=== PATIENT | male | born 1930 | race Caucasian/White ===

== ENCOUNTER 2017-01-15 22:08 | Emergency (ER) | payer OTHER ==
[2017-01-15 22:17] VITALS: RESP 16
--- NOTE | 2017-01-15 22:28 | CPEKG ---
Heart Rate: 104 RR Interval: 577 P-R Interval: 180 QRSD Interval: 110 QT Interval: 388 QTC Interval: 511 P [place]: 76 QRS [place]: -60 T Wave [place]: 75 EKG Severity - ABNORMAL ECG - EKG Impression: SINUS TACHYCARDIA EKG Impression: PAIRED VENTRICULAR PREMATURE COMPLEXES EKG Impression: LEFT ANTERIOR FASCICULAR BLOCK Electronically Signed By: Makeda Lucas 16-Jan-2017 06:50:23
[2017-01-15 22:55] LABS: % IMMATURE GRANULYOCYTES 0.3 % (0.0-1.1); ABSOLUTE IMMATURE GRANULOCYTES 0.02 10^3/uL (0.00-0.10); ADD DIFF? NO; ADD MORPH? NO; ADD SCAN? NO; ATYPICAL LYMPHOCYTE FLAG 10 (0-99); FRAGMENT RBC FLAG 0 (0-99); HEMATOCRIT 43.7 % (40.0-51.0); HEMOGLOBIN 15.4 g/dL (13.7-17.5); LEFT SHIFT FLG 0 (0-99); LIPEMIA HEMOLYSIS FLAG 90 (0-99); MEAN CELL HEMOGLOBIN CONCENTR. 35.2 g/dL (32.4-36.7); MEAN CELL VOLUME 90.9 fL (81.5-99.8); MEAN PLATELET VOLUME 9.3 fL (8.7-11.7); PLATELET CLUMPS FLAG 0 (0-99); PLATELET COUNT 253 10^3/uL (150-400); RED BLOOD CELL COUNT 4.81 10^6/uL (4.40-6.38); RED CELL DISTRIBUTION WIDTH 12.7 % (11.5-15.2)
[2017-01-15 23:08] LABS: ALANINE AMINOTRANSFERASE 36 IU/L (21-72); ALBUMIN 3.7 g/dL (3.5-5.0); ALKALINE PHOSPHATASE 80 IU/L (38-126); ANION GAP 8 mEq/L (8-16); ASPARTATE AMINOTRANSFERASE 34 IU/L (17-59); BILIRUBIN,TOTAL 0.6 mg/dL (0.1-1.4); CALCIUM 9.1 mg/dL (8.5-10.4); CARBON DIOXIDE 25 mEq/l (22-31); CHLORIDE 101 mEq/L (97-110); CREATININE 0.8 mg/dL (0.7-1.3); GLOMERULAR FILTRATION RATE > 60; GLUCOSE 110 mg/dL (70-100); POTASSIUM 3.9 mEq/L (3.5-5.2); SODIUM 134 mEq/L (134-144); TOTAL PROTEIN 6.3 g/dL (6.3-8.2)
--- NOTE | 2017-01-15 23:24 | EDPHY ---
H & P Stated Complaint: pt concerned for hypertension at home, no s/s-wearing holter monitor Time Seen by Provider: 01/15/17 22:43 HPI/ROS: HPI The patient presents with an episode which he describes as a panic attack which occurred several hours ago while he was in the car driving his grandsons home. As he felt generally unwell and began to hyperventilate. He said he had to get out of the car to see if he could make himself feel better. He describes his symptoms as being in a "punk". He has had episodes like this before. He denies any chest pain or shortness of breath. He went home after this episode and checked his blood pressure and it was 184/124, with his normal blood pressure being 135/80. He was concerned about this. He is currently wearing an event monitor for the last 5 days for frequent PVCs that he is been having. He is active, able to ride his recumbent bicycle 2-4 miles a day. He does not have any chest pain with exertion. REVIEW OF SYSTEMS Constitutional: No fever, no chills. Eyes: No discharge. ENT: No sore throat. Cardiovascular: No chest pain, no palpitations. Respiratory: No cough, no shortness of breath. Gastrointestinal: No abdominal pain, no vomiting. Genitourinary: No hematuria. Musculoskeletal: No back pain. Skin: No rashes. Neurological: No headache. PMHx: Hypertension, PVCs, hyperlipidemia Soc Hx: Lives at home with his PHYSICAL General Appearance: Alert, no distress Eyes: Pupils equal and round no pallor or injection ENT, Mouth: Mucous membranes moist Respiratory: There are no retractions, lungs are clear to auscultation Cardiovascular: Regular rate and rhythm Gastrointestinal: Abdomen is soft and non-tender, no masses, bowel sounds normal Neurological: A&O, moves all extremities Skin: Warm and dry, no rashes Musculoskeletal: Neck is supple non tender Extremities: symmetrical, full range of motion Psychiatric: Patient is oriented X 3, there is no agitation Source: Patient Exam Limitations: No limitations - Personal History Current Tetanus/Diphtheria Vaccine: Unsure Current Tetanus Diphtheria and Acellular Pertussis (TDAP): Unsure - Medical/Surgical History Hx Asthma: No Hx Chronic Respiratory Disease: No Hx Diabetes: No Hx Cardiac Disease: Yes Hx Renal Disease: No Hx Cirrhosis: No Hx Alcoholism: No Hx HIV/AIDS: No Hx Splenectomy or Spleen Trauma: No Other PMH: htn. hyperlipidemia. pvcs bigeminy. PMR - Social History Smoking Status: Never smoked Constitutional: Initial Vital Signs Temperature (C) 36.5 C 01/15/17 22:12 Heart Rate 80 01/15/17 22:12 Respiratory Rate 16 01/15/17 22:12 Blood Pressure 180/80 H 01/15/17 22:12 O2 Sat (%) 98 01/15/17 22:12 O2 Delivery Mode Room Air Allergies/Adverse Reactions: No Known Allergies Allergy (Unverified 01/15/17 22:17) Home Medications: Medication Instructions Recorded HCTZ (*) 01/15/17 Lisinopril 01/15/17 Prednisone 01/15/17 SIMVASTATIN 01/15/17 Medical Decision Making Differential Diagnosis: This is an 86-year-old man with history of hypertension, frequent PVCs, wearing a event monitor because of this for the last 5 days, who presents with an episode which he describes as an anxiety attack associated with elevated blood pressure, now symptoms have mostly resolved. Blood pressure has decreased significantly. On exam, he has normal vital signs with mildly elevated blood pressure, EKG does reveal paired PVCs. Differential diagnosis includes anxiety attack, electrolyte disturbance, ACS. In the emergency department, EKG was obtained which was unremarkable. Blood pressures were checked serially and were high but closer to his baseline. Electrolytes were unremarkable. Troponin was undetectable. I feel he likely had an anxiety attack and that is provoked his symptoms and raised his blood pressure. He will be discharged home with follow up with his materials inspector. He will continue his event monitor. - Data Points Laboratory Results: Laboratory Results 01/15/17 22:43 01/15/17 22:43 01/15/17 01/15/17 01/15/17 22:43 22:43 22:31 WBC 6.93 10^3/uL 10^3/uL (3.80-9.50) RBC 4.81 10^6/uL 10^6/uL (4.40-6.38) Hgb 15.4 g/dL g/dL (13.7-17.5) Hct 43.7 % % (40.0-51.0) MCV 90.9 fL fL (81.5-99.8) MCH 32.0 pg pg (27.9-34.1) MCHC 35.2 g/dL g/dL (32.4-36.7) RDW 12.7 % % (11.5-15.2) Plt Count 253 10^3/uL 10^3/uL (150-400) MPV 9.3 fL fL (8.7-11.7) Neut % (Auto) 49.7 % % (39.3-74.2) Lymph % (Auto) 36.2 % % (15.0-45.0) [place] % (Auto) 11.1 % % (4.5-13.0) Eos % (Auto) 2.0 % % (0.6-7.6) Baso % (Auto) 0.7 % % (0.3-1.7) Nucleat RBC Rel Count 0.0 % % (0.0-0.2) Absolute Neuts (auto) 3.44 10^3/uL 10^3/uL (1.70-6.50) Absolute Lymphs (auto) 2.51 10^3/uL 10^3/uL (1.00-3.00) Absolute Monos (auto) 0.77 10^3/uL 10^3/uL (0.30-0.80) Absolute Eos (auto) 0.14 10^3/uL 10^3/uL (0.03-0.40) Absolute Basos (auto) 0.05 10^3/uL 10^3/uL (0.02-0.10) Absolute Nucleated RBC 0.00 10^3/uL 10^3/uL (0-0.01) Immature Gran % 0.3 % % (0.0-1.1) Immature Gran # 0.02 10^3/uL 10^3/uL (0.00-0.10) Sodium 134 mEq/L mEq/L (134-144) Potassium 3.9 mEq/L mEq/L (3.5-5.2) Chloride 101 mEq/L mEq/L (97-110) Carbon Dioxide 25 mEq/l mEq/l (22-31) Anion Gap 8 mEq/L mEq/L (8-16) BUN 12 mg/dL mg/dL (7-23) Creatinine 0.8 mg/dL mg/dL (0.7-1.3) Estimated GFR > 60 Glucose 110 mg/dL H mg/dL (70-100) Calcium 9.1 mg/dL mg/dL (8.5-10.4) Phosphorus 3.5 mg/dL mg/dL (2.5-4.5) Magnesium 2.0 mg/dL mg/dL (1.6-2.3) Total Bilirubin 0.6 mg/dL mg/dL (0.1-1.4) AST 34 IU/L IU/L (17-59) ALT 36 IU/L IU/L (21-72) Alkaline Phosphatase 80 IU/L IU/L (38-126) Troponin I < 0.012 ng/mL ng/mL (0.000-0.034) Total Protein 6.3 g/dL g/dL (6.3-8.2) Albumin 3.7 g/dL g/dL (3.5-5.0) Departure - Departure Disposition: Home, Routine, Self-Care Clinical Impression: Elevated blood pressure reading, PVC (premature ventricular contraction) Condition: Good Instructions: Anxiety (ED), Anxiolysis in Adults (ED) Additional Instructions: Please follow-up with your materials inspector in the next few days. You should return to the emergency department if your worse in any way. Referrals: ANJALI GREWAL [Primary Care Provider] - As per Instructions
[2017-01-15 23:33] VITALS: BP 154/94; PULSE 81; O2SAT 96
[2017-01-16 00:29] VITALS: TEMP 98.2
== END 2017-01-16 00:29 | disposition home or self-care (01) ==
DX: I49.3 Ventricular premature depolarization (principal); I10 Essential (primary) hypertension